=== PATIENT | male | born 1975 | race Caucasian/White ===

== ENCOUNTER 2021-10-26 18:41 | Emergency (ER) | payer BC, SELFPAY ==
[2021-10-26 18:47] VITALS: BP 154/98; PULSE 70; RESP 16; TEMP 36.9; O2SAT 98
--- NOTE | 2021-10-26 19:02 | ED.EYEPROB ---
HPI - Eye Problem General Chief complaint: Eye Problems Stated complaint: right eye Time Seen by Provider: 10/26/21 19:02 Source: patient, RN notes reviewed and old records reviewed Mode of arrival: ambulatory Limitations: no limitations History of Present Illness HPI Narrative: 46 year old male who presents to [facility] care with complaints of working on brakes on his car and tool slipped and hit his right eye in medial right orbital area and in his right eye and inner canthus area. Patient states that vision went black for about 30 seconds and then it seemed to take awhile for it to return to normal, denies any visual disturbances at present time. Patient has not palpable pain to orbital area or any redness or bruising, small superficial laceration noted to right upper eyelid at inner canthus area. Visual acuity in clinic 20/20 bilateral eyes. Patient reports that he applied ice to hi right eye and states pain level at 4/10 at present time. Patient denies any LOC at time of incident. MD chief complaint: eye injury (right at 1720) Onset (ago): minute(s) (within past 2 hours) Mechanism: direct trauma Treatments Prior to Arrival: ice Related Data Patient tetanus UTD: No Allergies Allergy/AdvReac Type Severity Reaction Status Date / Time No Known Allergies Allergy Verified 10/26/21 18:57 Review of Systems Review of Systems: CONSTITUTIONAL: Denies fever, chills, or sweats EYES: Denies present visual distortion initially vision went black for few seconds and then gradually came back to normal, reports that vision is clear to right eye at present time. inner cantus redness of right eye, no discharge. Patient has small superficial laceration on inner upper eyelid. ENT: Denies rhinorrhea, congestion, sore throat, or otalgia. CARDIOVASCULAR: Denies chest pain, palpitations, or edema. RESPIRATORY: Denies cough or dyspnea. GASTROINTESTINAL: Denies abdominal pain, nausea, vomiting, or diarrhea. GENITOURINARY: Denies dysuria or hematuria. SKIN: Denies rash or itching. MUSCULOSKELETAL: Denies back pain, joint pain, or myalgia. NEUROLOGIC: Denies headache, numbness, or weakness. PSYCHIATRIC: Denies anxiety or depression. All systems reviewed & are unremarkable except as noted in HPI and below PMFSH Past Medical History Medical History (Updated 10/28/21 @ 16:49 by Denice Lizama NP) No significant past medical history Surgical History Surgical History (Updated 10/28/21 @ 16:50 by Denice Lizama NP) No pertinent past surgical history Family History Family History Father Malignant neoplasm of prostate Mother Family history of malignant neoplasm of thyroid Social History Social History (Updated 02/13/19 @ 10:04 by Tamiko Salgado, EXPERIMENTAL BOX TESTER) Smoking status: Never smoker Alcohol intake: never Substance use: never Comments At time of signature [facility] documentation of past medical , surgical, social, and family history, There is no pertinent family history relevant to presenting complaint. Exam Narrative: GENERAL: Well-appearing, well-nourished, and in no acute distress. HEAD: Normocephalic, atraumatic.area of eye EYES: PERRLA and EOMI. redness to inner canthus of right eye, small abrasion noted to upper inner upper eyelid, no visual deficit at this time with visual acuity 20/20, Denies any acute pain on palpation of orbital area of right eye, see procedure note ENT: Nares clear, no rhinorrhea or epistaxis. Mucous membranes moist. NECK: Supple.no lymphadenopathy CHEST: Clear to auscultation. No respiratory distress.SAO2 98% on room air HEART: Regular rate and rhythm. No murmur heard. Normal peripheral pulses. ABDOMEN: Soft, nontender, nondistended, normal active bowel sounds. EXTREMITIES: Normal range of motion. No edema. SKIN: Warm, dry, no rash. NEURO: No focal deficits. Alert and oriented x3. Course Course Level of Care: Express Care Visit Vit
[2021-10-26] MEDS: TETANUS,DIPHTHERIA,AC PERTUSSIS ADULT (0.5 ML) BOOSTRIX IM (19:25)
== END 2021-10-26 19:43 | disposition home or self-care (01) ==
PROVIDERS: Emergency Provider Registered Nurse; PCP Family Medicine
DX: S05.01XA Injury of conjunctiva and corneal abrasion without foreign body, right eye, initial encounter (principal); W22.8XXA Striking against or struck by other objects, initial encounter
CPT/HCPCS: 90471; 90714; 90715; 99213; A9270; G0463

== ENCOUNTER 2022-06-23 08:12 | Emergency (ER) | payer BC, SELFPAY ==
[2022-06-23 08:16] VITALS: BP 143/91; PULSE 72; RESP 20; TEMP 37.2; O2SAT 99
--- NOTE | 2022-06-23 08:18 | ED.SKABFB ---
HPI - Skin/Abscess/Foreign Bdy General Chief complaint: Skin/Abscess/Foreign Body Stated complaint: Rash Time Seen by Provider: 06/23/22 08:16 Source: patient and RN notes reviewed History of Present Illness HPI narrative: 46-year-old male presents to urgent care with complaints of a rash. Patient states he 1st noticed this rash to his bilateral groin approximately 10 days ago after cutting down a tree. Patient reports some itching and irritation and states the rash has now spread up to his trunk and back. Patient states he initially thought it could have been a jock itch so he attempted to apply antifungal cream without relief. Patient denies any fevers, chills, vomiting, chest pain, or shortness of breath. Patient has also applied an anti-itch spray with moderate relief. Some parts of this dictation were generated by voice recognition software and may contain typographical and/or grammatical inaccuracies. Related Data Allergies Allergy/AdvReac Type Severity Reaction Status Date / Time No Known Allergies Allergy Verified 10/26/21 18:57 Review of Systems Review of Systems: Pertinent positives and pertinent negatives per HPI. [facility] Past Medical History Medical History (Updated 06/23/22 @ 08:31 by Dayana Garcia, WAREHOUSE WORKER) No significant past medical history Surgical History Surgical History (Updated 10/28/21 @ 16:50 by Denice Lizama NP) No pertinent past surgical history Family History Family History Father Malignant neoplasm of prostate Mother Family history of malignant neoplasm of thyroid Social History Social History (Updated 02/13/19 @ 10:04 by Tamiko Salgado, FUNERAL HOME ASSISTANT) Smoking status: Never smoker Alcohol intake: never Substance use: never Living arrangements: with family Comments At the time of my signature, I reviewed and agree with the nursing past medical, surgical, social, and family history. There is no relevant family history pertinent to the patient complaint. Exam Narrative: GENERAL: This is a well-nourished, well-developed patient, in no apparent distress. HEAD: normocephalic, atraumatic. EYES: Sclera clear/white. Vision is grossly intact. EARS: External ears normal, auditory canals clear and without drainage, TMs normal without perforation. Hearing grossly intact. NOSE: External nose normal with no obvious nasal discharge, nares without redness, no rhinorrhea. THROAT: Mucous membranes moist, posterior pharynx clear. NECK: Neck supple, non-tender without lymphadenopathy, masses or thyromegaly. CARDIOVASCULAR: Regular rate and rhythm without murmurs, gallops, or rubs. RESPIRATORY: Clear to auscultation. Breath sounds equal bilaterally. No wheezes, rales, or rhonchi. GASTROINTESTINAL: Abdomen soft, non-tender, nondistended. Bowel sounds are active. No hepato-splenomegaly, or palpable masses. No guarding. SKIN: erythremic, scattered, dry, spots and patches to trunk and groin. NEURO: awake, alert, and oriented to person, place and time. There were no obvious focal neurologic abnormalities. EXTREMITIES: No clubbing, cyanosis, or edema. No joint tenderness, effusion, or edema noted. BACK: Nontender without deformity or crepitance. No flank tenderness. Course Course Level of Care: Express Care Visit Vital Signs Vital signs: Vital Signs Temperature 98.9 F 06/23/22 08:16 Pulse Rate 72 06/23/22 08:16 Respiratory Rate 20 06/23/22 08:16 Blood Pressure 143/91 H 06/23/22 08:16 Pulse Oximetry 99 06/23/22 08:16 Oxygen Delivery Room Air 06/23/22 08:16 Temperature 98.9 F 06/23/22 08:16 Pulse Rate 72 06/23/22 08:16 Respiratory Rate 20 06/23/22 08:16 Blood Pressure 143/91 H 06/23/22 08:16 Pulse Oximetry 99 06/23/22 08:16 Oxygen Delivery Room Air 06/23/22 08:16 reviewed. MDM - Skin/Abscess/Foreign Bdy MDM Narrative Medical decision making narrative: Take the steroids as directed. May
== END 2022-06-23 08:32 | disposition home or self-care (01) ==
PROVIDERS: Emergency Provider Nurse Practitioner Family; PCP Family Medicine
DX: L25.9 Unspecified contact dermatitis, unspecified cause (principal)
CPT/HCPCS: 99213; G0463